=== PATIENT | male | born 1945 | race Caucasian/White ===

== ENCOUNTER → 2017-06-13 | Outpatient (CLI) | payer MEDICARE, BC | LOC: GMAB 10:17 | PROVIDERS: ATTEND Family Medicine | DX: I10 Essential (primary) hypertension (principal); E78.2 Mixed hyperlipidemia; E11.9 Type 2 diabetes mellitus without complications; Z12.5 Encounter for screening for malignant neoplasm of prostate | CPT/HCPCS: 84443; G0103 ==

== ENCOUNTER → 2018-06-14 | Outpatient (CLI) | payer MEDICARE, BC | LOC: GMAE 11:12 | PROVIDERS: ATTEND Family Medicine | DX: I10 Essential (primary) hypertension (principal) ==

== ENCOUNTER → 2018-06-20 | Outpatient (CLI) | payer MEDICARE, BC ==
--- NOTE | 2018-06-20 09:04 | US ---
Procedure: US RETROPERITONEUM AORTA Exam Date: 06/20/2018 Ordering Provider: DEVON SANFORD Clinical Indication: AAA Comparison: None TECHNIQUE : Real-time ultrasonography was obtained of the abdominal aorta to the bifurcation utilizing loving scale and color flow analysis. FINDINGS: Proximal aorta measures 2.2 x 2.3 x 2.4 cm. Mid aorta measures 1.8 x 2.8 x 1.8 cm. Distal aorta measures 2.0 x 1.9 x 2.0 cm. Common iliac arteries are within normal limits. IMPRESSION: 1. No evidence of abdominal aortic aneurysm. Electronically signed by: Willis Anand MD 06/20/2018 9:03 AM CDT
== END ==
LOC: US 08:00
PROVIDERS: ATTEND Family Medicine
DX: Z13.89 Encounter for screening for other disorder (principal)

== ENCOUNTER → 2019-07-17 | Outpatient (CLI) | payer MEDICARE, BC | LOC: GMAE 10:41 | PROVIDERS: ATTEND Family Medicine | DX: I10 Essential (primary) hypertension (principal); E11.9 Type 2 diabetes mellitus without complications; E78.2 Mixed hyperlipidemia ==